=== PATIENT | male | born 1985 | race Caucasian/White ===

== ENCOUNTER 2016-11-13 15:33 | Day surgery (SDC) | payer OTHER ==
[~2016-11-13] VITALS: Ht 190.5 cm; Wt 107.6 kg
[2016-11-13] MEDS ORDERED: MULT-6 PO (16:07)
[2016-11-13] MEDS ORDERED: MORPHINE SULFATE 4 MG/ML, 1ML IVPush PRN (16:30)
[2016-11-13] MEDS ORDERED: SODIUM CHLORIDE 0.9% 1,000ML IVBOLUS ONE (16:30)
[2016-11-13] MEDS ORDERED: ONDANSETRON 2MG/ML, 2ML IVPush ONE (16:30)
[2016-11-13 16:47] LABS: BLOOD UREA NITROGEN 10 mg/dL (7-18)
[2016-11-13 16:51] LABS: ASPARTATE AMINO TRANSFERASE 30 U/L (15-37)
[2016-11-13] MEDS ORDERED: CEFOTETAN PMX 2GM/50ML 50 ML IV ONE (17:00)
[2016-11-13] MEDS ORDERED: BUPIVACAINE/PF-EPI 0.5% 1:200K ONE (17:31)
[2016-11-13 17:32] VITALS: BP 128/86
[2016-11-13] MEDS ORDERED: NEOSTIGMINE 1 MG/ML, 10ML ONE (17:49)
[2016-11-13] MEDS ORDERED: SUCCINYLCHOLINE 20 MG/ML, 10ML ONE (17:49)
[2016-11-13] MEDS ORDERED: KETOROLAC 30 MG/1 ML ONE (17:49)
[2016-11-13] MEDS ORDERED: DEXAMETHASONE 4 MG/ML, 5ML ONE (17:49)
[2016-11-13] MEDS ORDERED: GLYCOPYRROLATE 0.2MG/1ML ONE (17:49)
[2016-11-13] MEDS ORDERED: CEFOTETAN 2 GM ONE (17:49)
[2016-11-13] MEDS ORDERED: PROPOFOL 10 MG/ML, 20ML ONE (17:49)
[2016-11-13] MEDS ORDERED: ONDANSETRON 2MG/ML, 2ML ONE (17:49)
[2016-11-13] MEDS ORDERED: ROCURONIUM 10 MG/ML ONE (17:49)
[2016-11-13] MEDS ORDERED: FENTANYL PF 250 MCG/5ML ONE (17:52)
[2016-11-13] MEDS ORDERED: OXYcodone 5 MG/5 ML ORAL.SOL UDC ONE (18:41)
[2016-11-13] MEDS ORDERED: FENTANYL PF 100 MCG/2ML ONE (18:42)
[2016-11-13] MEDS ORDERED: HYDROmorphone 1 MG/ML, 1ML IV PRN (19:00)
[2016-11-13] MEDS ORDERED: ONDANSETRON 2MG/ML, 2ML IVPush PRN (19:00)
[2016-11-13] MEDS ORDERED: FENTANYL PF 100 MCG/2ML IV PRN (19:00)
[2016-11-13] MEDS ORDERED: hydrALAzine 20 MG/ML, 1ML IV PRN (19:00)
[2016-11-13] MEDS ORDERED: OXYcodone 5 MG/5 ML ORAL.SOL UDC PO PRN (19:00)
[2016-11-13] MEDS ORDERED: ACETAMINOPHEN 325 MG TABLET PO PRN (19:00)
[2016-11-13] MEDS ORDERED: LABETALOL 5MG/ML, 20ML IV PRN (19:00)
== END 2016-11-13 21:45 | disposition home or self-care (01) ==
LOC: ED 16:53 → UNDOADMIN 17:11 → EDIP 17:11 → UNDODISIN 18:11 → SDC 19:00
PROVIDERS: ATTEND Surgery
DX: K35.80 Unspecified acute appendicitis (principal); K38.8 Other specified diseases of appendix; Z82.49 Family history of ischemic heart disease and other diseases of the circulatory system
CPT/HCPCS: 36415; 44970; 80053; 85025; 88304; 96360; 99285; J0330; J1100; J1885; J2405; J2704; J2710; J3010; J3490; J7030; S0074

== ENCOUNTER → 2016-11-13 | Outpatient (CLI) | payer OTHER ==
[~2016-11-13] MED LIST: MULT-6 PO; OMNIPAQUE 350 MG/ML, 100ML BOTTLE ONE
== END | disposition home or self-care (01) ==
LOC: CFH 12:10
PROVIDERS: ATTEND Physician Assistant
DX: R59.0 Localized enlarged lymph nodes (principal); D73.9 Disease of spleen, unspecified
CPT/HCPCS: 74177; Q9967